=== PATIENT | male | born 1975 | race Caucasian/White ===

== ENCOUNTER 2020-10-04 09:50 | Inpatient (IN) | payer OTHER, SELFPAY ==
[2020-10-04] MEDS ORDERED: HYDROmorphone 0.5 MG/0.5 ML SYRINGE ONE ×2 (10:00→10:50)
[2020-10-04] MEDS ORDERED: Boostrix 0.5 ML (Tdap) VIAL ONE ×2 (10:45→10:49)
[2020-10-04 12:23] LABS: SARS-CoV-2 NAA Rapid Test Not Detected (NotDetected)
[2020-10-04] MEDS ORDERED: Dextrose 50% Abboject 50 ML SYRINGE SLOW IVP PRN (14:44)
[2020-10-04] MEDS ORDERED: hydrALAZINE 20 MG/ML VIAL SLOW IVP PRN (14:44)
[2020-10-04] MEDS ORDERED: Ondansetron ODT 4 MG TAB PO PRN (14:44)
[2020-10-04] MEDS ORDERED: Morphine 2 MG/ML VIAL SLOW IVP PRN (14:44)
[2020-10-04] MEDS ORDERED: Dextrose 5% in Water 1,000 ML IV PRN (14:44)
[2020-10-04] MEDS ORDERED: Ondansetron PF 4 MG/2 ML Vial IVP PRN (14:44)
[2020-10-04] MEDS ORDERED: Cyclobenzaprine 10 MG TAB PO PRN ×2 (14:47→15:03)
[2020-10-04 15:58] LABS: Hemoglobin 14.4 g/dL (14.0-18.0); Mean Corpuscular HGB CONC 32.9 g/dL (32.0-36.0); Mean Corpuscular Hemoglobin 30.6 pg (27.0-31.0); Mean Corpuscular Volume 93.1 fL (78.0-98.0); Mean Platelet Volume 7.7 fL (7.4-10.4); Platelet Count 269 thou/uL (130-400); RBC Distribution Width 11.9 % (11.5-14.5); Red Blood Cell (RBC) Count 4.69 mill/uL (4.70-6.10); White Blood Cell (WBC) Count 9.3 thou/uL (4.8-10.8)
[2020-10-04 16:03] LABS: Band 12 % (5-11); Lymphocytes 27 % (21-51); MDiff Complete? YES; Monocytes 7 % (0-10); Neutrophil 47 % (42-75); Platelet Morphology Comment Appears Adequate; RBC Morphology Normal; Reactive Lymphocytes 7 % (0-10)
[2020-10-04 16:21] VITALS: BMI 31.6
[2020-10-04] MEDS: Lactated Ringer's 1,000 ML IV SCH ×2 (16:30→21:12)
[2020-10-04] MEDS: Gabapentin 300 MG CAP PO SCH ×2 (16:30→21:04)
[2020-10-04] MEDS ORDERED: Morphine 4 MG/ML VIAL SLOW IVP PRN (16:45)
[2020-10-04 17:06] LABS: ALT (SGPT) 35 U/L (8-55); AST (SGOT) 38 U/L (5-34); Alkaline Phosphatase 85 U/L (40-110); Anion Gap 14 mmol/L (10-20); BUN (Urea Nitrogen) 11 mg/dL (8.9-20.6); Bilirubin, Total 0.6 mg/dL (0.2-1.2); CK (CPK) 727 U/L (30-200); Calc. Creatinine Clearance 102 mL/min (70-130); Carbon Dioxide 27 mmol/L (22-29); Chloride 104 mmol/L (98-107); Globulin 2.7 g/dL (2.4-3.5); Glucose 131 mg/dL (70-105); Magnesium 2.3 mg/dL (1.6-2.6); Phosphorus 3.8 mg/dL (2.3-4.7); Potassium 4.5 mmol/L (3.5-5.1); Protein, Total 6.7 g/dL (6.0-8.3); Sodium 140 mmol/L (136-145)
[2020-10-04] MEDS: Acetaminophen 500 MG TAB PO SCH ×2 (18:21→23:03)
[2020-10-04] MEDS: Ketorolac Tromethamine 30 MG/ML VIAL IVP SCH ×2 (18:21→23:04)
[2020-10-04] MEDS: traMADol HCl 50 MG TAB PO SCH ×2 (18:21→23:03)
[2020-10-04] MEDS: Senokot S 8.6-50 MG TAB PO SCH (21:04)
[2020-10-04] MEDS: Famotidine 20 MG TAB PO SCH (21:04)
[2020-10-05] MEDS: Lactated Ringer's 1,000 ML IV SCH (05:40)
[2020-10-05] MEDS: Acetaminophen 500 MG TAB PO SCH ×2 (05:41→15:32)
[2020-10-05] MEDS: Ketorolac Tromethamine 30 MG/ML VIAL IVP SCH ×2 (05:43→15:32)
[2020-10-05] MEDS: traMADol HCl 50 MG TAB PO SCH ×2 (05:43→15:32)
[2020-10-05 05:50] LABS: #Basophils 0.1 thou/uL (0.0-0.2); #Eosinphils 0.3 thou/uL (0.0-0.7); #Lymphocytes 2.9 thou/uL (1.20-3.40); #Monocytes 0.5 thou/uL (0.11-0.59); #Neutrophils 3.2 thou/uL (1.40-6.50); %Basophils 0.9 % (0.0-1.0); %Eosinophils 4.6 % (0.0-10.0); %Lymphocytes 41.4 % (21.0-51.0); %Monocytes 7.3 % (0.0-10.0); %Neutrophils 45.9 % (42.0-75.0); Hemoglobin 13.4 g/dL (14.0-18.0); Mean Corpuscular HGB CONC 33.3 g/dL (32.0-36.0); Mean Corpuscular Hemoglobin 30.9 pg (27.0-31.0); Mean Corpuscular Volume 92.7 fL (78.0-98.0); Mean Platelet Volume 7.9 fL (7.4-10.4); Platelet Count 217 thou/uL (130-400); RBC Distribution Width 11.7 % (11.5-14.5); Red Blood Cell (RBC) Count 4.32 mill/uL (4.70-6.10)
[2020-10-05 06:10] LABS: Anion Gap 12 mmol/L (10-20); BUN (Urea Nitrogen) 10 mg/dL (8.9-20.6); CK (CPK) 341 U/L (30-200); Calc. Creatinine Clearance 126 mL/min (70-130); Calcium 8.7 mg/dL (7.8-10.44); Carbon Dioxide 25 mmol/L (22-29); Chloride 104 mmol/L (98-107); Glucose 145 mg/dL (70-105); Phosphorus 3.6 mg/dL (2.3-4.7); Potassium 3.6 mmol/L (3.5-5.1); Sodium 137 mmol/L (136-145)
[2020-10-05] MEDS: Senokot S 8.6-50 MG TAB PO SCH (08:49)
[2020-10-05] MEDS: Gabapentin 300 MG CAP PO SCH (08:49)
[2020-10-05] MEDS: Famotidine 20 MG TAB PO SCH (08:49)
[2020-10-05] MEDS ORDERED: Polyethylene Glycol 3350 17 GM Packet PO SCH (09:00)
[2020-10-05 15:50] VITALS: BP 122/73; TEMP 98.1
== END 2020-10-05 16:50 | disposition home or self-care (01) | DRG 914 ==
LOC: ERS 09:50 → ERHOLD 11:47 → SURG A 16:11
PROVIDERS: ADMIT Specialist; ATTEND Specialist
DX: S87.81XA Crushing injury of right lower leg, initial encounter (principal); Z20.822 Contact with and (suspected) exposure to COVID-19; F17.210 Nicotine dependence, cigarettes, uncomplicated; S97.82XA Crushing injury of left foot, initial encounter; Z90.89 Acquired absence of other organs; V87.8XXA Person injured in other specified noncollision transport accidents involving motor vehicle (traffic), initial encounter
CPT/HCPCS: 36415; 80048; 80053; 82550; 83735; 84100; 85007; 85025; 85027; 90471; 90715; 96374; 96376; J1170; J1885; J2270; U0002

== ENCOUNTER 2020-10-16 10:08 | Emergency (ER) | payer SELFPAY ==
[2020-10-16] MEDS ORDERED: Ketorolac Tromethamine 30 MG/ML VIAL ONE (11:35)
[2020-10-16] MEDS ORDERED: Acetaminophen 325 MG TAB ONE (11:35)
== END 2020-10-16 12:30 | disposition home or self-care (01) ==
LOC: ERS 10:08
DX: S80.11XA Contusion of right lower leg, initial encounter (principal); R20.2 Paresthesia of skin; I10 Essential (primary) hypertension; F17.210 Nicotine dependence, cigarettes, uncomplicated; W22.8XXA Striking against or struck by other objects, initial encounter; Y99.0 Civilian activity done for income or pay
CPT/HCPCS: 96372; J1885

== ENCOUNTER 2021-03-08 18:26 | Inpatient (IN) | payer SELFPAY ==
[2021-03-08 19:23] LABS: #Eosinphils 0.2 thou/uL (0.0-0.7); #Lymphocytes 1.8 thou/uL (1.20-3.40); #Monocytes 0.4 thou/uL (0.11-0.59); #Neutrophils 5.2 thou/uL (1.40-6.50); %Basophils 0.4 % (0.0-1.0); %Eosinophils 2.3 % (0.0-10.0); %Lymphocytes 23.8 % (21.0-51.0); %Monocytes 5.8 % (0.0-10.0); %Neutrophils 67.8 % (42.0-75.0); Hemoglobin 14.5 g/dL (14.0-18.0); Mean Corpuscular HGB CONC 34.2 g/dL (32.0-36.0); Mean Corpuscular Hemoglobin 31.4 pg (27.0-31.0); Mean Corpuscular Volume 91.7 fL (78.0-98.0); Mean Platelet Volume 7.7 fL (7.4-10.4); Platelet Count 215 thou/uL (130-400); RBC Distribution Width 11.9 % (11.5-14.5); Red Blood Cell (RBC) Count 4.61 mill/uL (4.70-6.10); White Blood Cell (WBC) Count 7.7 thou/uL (4.8-10.8)
[2021-03-08 19:55] LABS: ALT (SGPT) 24 U/L (8-55); AST (SGOT) 19 U/L (5-34); Albumin 3.9 g/dL (3.5-5.0); Alkaline Phosphatase 83 U/L (40-110); Anion Gap 12 mmol/L (10-20); BUN (Urea Nitrogen) 7 mg/dL (8.9-20.6); Bilirubin, Total 0.4 mg/dL (0.2-1.2); Calc. Creatinine Clearance 0 mL/min (70-130); Calcium 8.9 mg/dL (7.8-10.44); Carbon Dioxide 31 mmol/L (22-29); Chloride 99 mmol/L (98-107); Globulin 2.6 g/dL (2.4-3.5); Glucose 197 mg/dL (70-105); Lipase 25 U/L (8-78); Magnesium 1.8 mg/dL (1.6-2.6); Potassium 3.9 mmol/L (3.5-5.1); Protein, Total 6.5 g/dL (6.0-8.3); Sodium 138 mmol/L (136-145)
[2021-03-08 22:09] LABS: Bilirubin Negative (Negative); Blood, Urine Negative (Negative); Clarity Clear (Clear); Glucose, Urine (Dipstick) 70 mg/dL (Negative); Ketone, Urine Negative (Negative); Leukocyte Negative Leu/uL (Negative); Nitrite Negative (Negative); Protein, Urine (Dipstick) 10 mg/dL (Neg-Trace); Urobilinogen Normal mg/dL (Less than 2)
[2021-03-08 22:12] LABS: Specific Gravity, Urine Greater than 1.060 (1.002-1.036)
[2021-03-08] MEDS ORDERED: Piperacillin/Tazobactam 4.5 GM VIAL ONE (22:32)
[2021-03-09] MEDS: Sodium Chloride 0.9% 1,000 ML IV SCH ×3 (00:31→21:35)
[2021-03-09 00:33] VITALS: BMI 33.1
[2021-03-09 04:19] LABS: SARS-CoV-2 NAA Rapid Test Not Detected (NotDetected)
[2021-03-09] MEDS ORDERED: cefOXitin Sodium/Dextrose,Iso 2 GM in Premix Bag 1 BAG IVPB SCH (07:30)
[2021-03-09] MEDS ORDERED: cefOXitin 2 GM in Sodium Chloride 0.9% 100 ML IVPB SCH (07:30)
[2021-03-09] MEDS ORDERED: cefOXitin Sodium/Dextrose 2 GM/50 ML BAG ONE (10:44)
[2021-03-09] MEDS ORDERED: EPINEPHrine 1 MG/ML AMP ONE (11:25)
[2021-03-09] MEDS ORDERED: Bupivacaine 0.25% HCL 30 ML VIAL ONE (11:25)
[2021-03-09] MEDS ORDERED: Midazolam HCl 2 mg/2 ml Vial ONE (11:44)
[2021-03-09] MEDS ORDERED: Fentanyl 100 MCG/2 ML VIAL ONE ×2 (11:44→13:40)
[2021-03-09] MEDS ORDERED: Succinylcholine 200 MG/10 ml SYRINGE FS ONE (11:53)
[2021-03-09] MEDS ORDERED: Lidocaine 1% PF 5 ML VIAL ONE (11:53)
[2021-03-09] MEDS ORDERED: PHENYLEPHRINE-NS 100 MCG/ML 10 ML SYRINGE ONE (11:53)
[2021-03-09] MEDS ORDERED: Glycopyrrolate 0.2 MG/ML 5 ML SYRINGE ONE (11:53)
[2021-03-09] MEDS ORDERED: Dexamethasone 20 MG/5 ML VIAL ONE (11:53)
[2021-03-09] MEDS ORDERED: Rocuronium Bromide 10 MG/ML (10ML VIAL) ONE (11:53)
[2021-03-09] MEDS ORDERED: Ondansetron PF 4 MG/2 ML Vial ONE (11:53)
[2021-03-09] MEDS ORDERED: Ketorolac Tromethamine 30 MG/ML VIAL ONE (11:53)
[2021-03-09] MEDS ORDERED: PROPOFOL 200 MG/20 ML VIAL ONE (11:53)
[2021-03-09] MEDS ORDERED: Ondansetron PF 4 MG/2 ML Vial IVP PRN (13:10)
[2021-03-09] MEDS ORDERED: Promethazine HCl 25 MG/ML VIAL IM PRN (13:10)
[2021-03-09] MEDS ORDERED: Morphine 2 MG/ML VIAL SLOW IVP PRN (13:10)
[2021-03-09] MEDS ORDERED: hydrALAZINE 20 MG/ML VIAL SLOW IVP PRN (13:10)
[2021-03-09] MEDS ORDERED: Dextrose 50% Abboject 50 ML SYRINGE SLOW IVP PRN (13:10)
[2021-03-09] MEDS ORDERED: Mag-Al 1200 mg/1200 mg/30 ML UDCUP PO PRN (13:10)
[2021-03-09] MEDS ORDERED: Calcium Carbonate 500 MG ChewTAB PO PRN (13:10)
[2021-03-09] MEDS ORDERED: Dextrose 5% in Water 1,000 ML IV PRN (13:10)
[2021-03-09] MEDS ORDERED: Morphine 4 MG/ML VIAL SLOW IVP PRN (13:10)
[2021-03-09] MEDS ORDERED: Non-Formulary Medication 1 EACH PO PRN (14:20)
[2021-03-09] MEDS ORDERED: Ondansetron HCl/PF 4 MG/2 ML Vial IVP PRN (14:30)
[2021-03-09] MEDS ORDERED: Morphine Sulfate 2 MG/ML SYRINGE SLOW IVP PRN (14:30)
[2021-03-09] MEDS ORDERED: PACU-Morphine 4MG/ML VIAL SLOW IVP PRN (14:30)
[2021-03-09] MEDS ORDERED: Promethazine HCl 25 MG/ML VIAL IM/IV PRN (14:30)
[2021-03-09] MEDS: Piperacillin/Tazobactam 3.375 GM in Sodium Chloride 0.9% 100 ML IVPB SCH ×2 (14:45→22:18)
[2021-03-09] MEDS: Ketorolac Tromethamine 30 MG/ML VIAL IVP SCH (18:07)
[2021-03-09] MEDS: Famotidine 20 MG TAB PO SCH (20:26)
[2021-03-09] MEDS: Famotidine/PF 20 mg/2ml Vial SLOW IVP SCH (20:44)
[2021-03-09] MEDS: HYDROcodone/Acetaminophen 10/325 mg Tablet PO PRN (22:19)
[2021-03-10] MEDS: Ketorolac Tromethamine 30 MG/ML VIAL IVP SCH ×5 (00:46→23:57)
[2021-03-10] MEDS: HYDROcodone/Acetaminophen 10/325 mg Tablet PO PRN ×3 (04:32→18:15)
[2021-03-10] MEDS: Piperacillin/Tazobactam 3.375 GM in Sodium Chloride 0.9% 100 ML IVPB SCH ×3 (05:57→21:19)
[2021-03-10] MEDS: Sodium Chloride 0.9% 1,000 ML IV SCH ×3 (06:04→14:35)
[2021-03-10 06:39] LABS: #Lymphocytes 1.5 thou/uL (1.20-3.40); #Monocytes 0.9 thou/uL (0.11-0.59); #Neutrophils 12.6 thou/uL (1.40-6.50); %Basophils 0.1 % (0.0-1.0); %Eosinophils 0.1 % (0.0-10.0); %Lymphocytes 9.7 % (21.0-51.0); %Monocytes 5.9 % (0.0-10.0); %Neutrophils 84.3 % (42.0-75.0); Hemoglobin 12.9 g/dL (14.0-18.0); Mean Corpuscular HGB CONC 33.5 g/dL (32.0-36.0); Mean Corpuscular Hemoglobin 30.8 pg (27.0-31.0); Mean Platelet Volume 7.8 fL (7.4-10.4); Platelet Count 254 thou/uL (130-400); RBC Distribution Width 11.9 % (11.5-14.5)
[2021-03-10 07:01] LABS: ALT (SGPT) 25 U/L (8-55); AST (SGOT) 35 U/L (5-34); Albumin 3.6 g/dL (3.5-5.0); Alkaline Phosphatase 77 U/L (40-110); Anion Gap 10 mmol/L (10-20); BUN (Urea Nitrogen) 10 mg/dL (8.9-20.6); Bilirubin, Total 0.4 mg/dL (0.2-1.2); Calc. Creatinine Clearance 108 mL/min (70-130); Carbon Dioxide 31 mmol/L (22-29); Chloride 100 mmol/L (98-107); Globulin 2.4 g/dL (2.4-3.5); Glucose 221 mg/dL (70-105); Lipase 14 U/L (8-78); Potassium 4.6 mmol/L (3.5-5.1); Sodium 136 mmol/L (136-145)
[2021-03-10] MEDS: Famotidine/PF 20 mg/2ml Vial SLOW IVP SCH ×2 (08:53→20:49)
[2021-03-10] MEDS: Famotidine 20 MG TAB PO SCH ×2 (08:53→20:49)
[2021-03-10] MEDS: Enoxaparin Sodium 40 MG/0.4 ML SYRINGE SC SCH (09:15)
[2021-03-10] MEDS ORDERED: Sodium Chloride 0.9% 500 ML IV SCH (16:45)
[2021-03-11] MEDS: Sodium Chloride 0.9% 1,000 ML IV SCH ×2 (00:02→01:35)
[2021-03-11] MEDS: Ketorolac Tromethamine 30 MG/ML VIAL IVP SCH (05:55)
[2021-03-11] MEDS: Piperacillin/Tazobactam 3.375 GM in Sodium Chloride 0.9% 100 ML IVPB SCH (06:01)
[2021-03-11 08:25] VITALS: BP 130/84; TEMP 97.7
[2021-03-11] MEDS: Famotidine 20 MG TAB PO SCH (09:09)
[2021-03-11] MEDS: HYDROcodone/Acetaminophen 10/325 mg Tablet PO PRN (09:10)
[2021-03-11] MEDS: Famotidine/PF 20 mg/2ml Vial SLOW IVP SCH (09:12)
[2021-03-11] MEDS: Enoxaparin Sodium 40 MG/0.4 ML SYRINGE SC SCH (09:16)
== END 2021-03-11 10:37 | disposition home or self-care (01) | DRG 419 ==
LOC: ERS 18:26 → SJJU 22:48
PROVIDERS: ADMIT Surgery; ATTEND Surgery
PROC: 0FT44ZZ Resection of Gallbladder, Percutaneous Endoscopic Approach (ICD-10-PCS; principal; 2021-03-09)
DX: K80.00 Calculus of gallbladder with acute cholecystitis without obstruction (principal); I10 Essential (primary) hypertension; F17.210 Nicotine dependence, cigarettes, uncomplicated; Z20.822 Contact with and (suspected) exposure to COVID-19; Z90.89 Acquired absence of other organs
CPT/HCPCS: 36415; 74177; 76705; 80053; 81003; 83690; 83735; 83880; 84484; 85025; 87040; 87070; 87205; 88304; 93005; 96365; J0171; J0694; J1100; J1650; J1885; J2250; J2270; J2405; J2543; J2704; J3010; J3490; J7030; J7050; S0020; U0002

== ENCOUNTER 2024-04-03 11:03 | Inpatient (IN) | payer OTHER, SELFPAY ==
[~2024-04-03 11:03] MED LIST: Iopamidol-370 76% 500 ML MDV (1 ML CHARGE) ONE
[2024-04-03 12:08] LABS: #Basophils 0.05 10x3/uL (0.0-0.2); %Basophils 0.5 % (0.0-1.0); %Eosinophils 2.4 % (0.0-10.0); %Lymphocytes 28.1 % (21.0-51.0); %Monocytes 8.9 % (0.0-10.0); %Neutrophils 59.8 % (42.0-75.0); Hematocrit 46.3 % (42.0-52.0); Hemoglobin 15.4 g/dL (14.0-18.0); Mean Corpuscular HGB CONC 33.3 g/dL (32.0-36.0); Mean Corpuscular Hemoglobin 30.7 pg (27.0-31.0); Mean Corpuscular Volume 92.2 fL (78.0-98.0); Mean Platelet Volume 10.5 fL (7.4-10.4); Platelet Count 243 10x3/uL (130-400); RBC Distribution Width 12.4 % (11.5-14.5); Red Blood Cell (RBC) Count 5.02 mill/uL (4.70-6.10)
[2024-04-03 12:24] LABS: Troponin I Less than 0.010 ng/mL (< 0.028)
[2024-04-03 12:25] LABS: INR-International Normal Ratio 1.1; PTT 31.5 sec (22.9-36.1)
[2024-04-03 12:27] LABS: ALT (SGPT) 18 U/L (8-55); AST (SGOT) 22 U/L (5-34); Albumin 3.7 g/dL (3.5-5.0); Alkaline Phosphatase 93 U/L (40-110); Anion Gap 13 mmol/L (10-20); BUN (Urea Nitrogen) 12 mg/dL (8.9-20.6); Calc. Creatinine Clearance 0 mL/min (70-130); Calcium 8.9 mg/dL (7.8-10.44); Carbon Dioxide 24 mmol/L (22-29); Chloride 105 mmol/L (98-107); Estimated GFR 67; Globulin 2.7 g/dL (2.4-3.5); Glucose 190 mg/dL (70-105); Potassium 3.9 mmol/L (3.5-5.1); Protein, Total 6.4 g/dL (6.0-8.3); Sodium 138 mmol/L (136-145)
[2024-04-03] MEDS ORDERED: Aspirin Chewable 81 MG TAB ONE (13:58)
[2024-04-03] MEDS ORDERED: Acetaminophen 325 MG TAB PO PRN (16:25)
[2024-04-03] MEDS ORDERED: hydrALAZINE 20 MG/ML VIAL SLOW IVP PRN (16:26)
[2024-04-03] MEDS ORDERED: Dextrose 5% in Water 1,000 ML IV PRN (17:22)
[2024-04-03] MEDS ORDERED: Glucagon 1 MG/ML KIT IM PRN (17:22)
[2024-04-03] MEDS ORDERED: Dextrose 50% Abboject 50 ML SYRINGE SLOW IVP PRN (17:22)
[2024-04-03 18:34] LABS: Hemoglobin A1c 11.7 % (4.0-6.0)
[2024-04-03 20:23] VITALS: BMI 27.7
[2024-04-03] MEDS: Atorvastatin Calcium 40 MG TAB PO SCH (20:37)
[2024-04-04 09:02] LABS: PTT 30.9 sec (22.9-36.1); Prothrombin Time 13.7 sec (12.0-14.7)
[2024-04-04 09:08] LABS: D-Dimer Test Less than 0.27 mcg/mL (0.27-0.43)
[2024-04-04] MEDS: Enoxaparin 40 MG (0.4 mL) SYRINGE SC SCH (10:25)
[2024-04-04] MEDS: Aspirin 81 mg Enteric Coated Tablet PO SCH (10:26)
[2024-04-04 12:24] LABS: Cardiolipin IgA Ab 2.7 APL-U/mL (<14 Negative); Cardiolipin IgG Ab 0.7 GPL-U/mL (<10 Negative); Cardiolipin IgM Ab 1.8 MPL-U/mL (<10 Negative); EliA APS New Method **** NEW METHOD ****
[2024-04-04 15:15] VITALS: BMI 27.7
[2024-04-04] MEDS: Insulin Lispro 100 UNIT/ML 10 ML VIAL SC PRN (17:27)
[2024-04-04] MEDS: metFORMIN 850 MG TAB PO SCH (17:27)
[2024-04-05 05:24] LABS: #Basophils 0.06 10x3/uL (0.0-0.2); %Basophils 0.6 % (0.0-1.0); %Eosinophils 2.2 % (0.0-10.0); %Lymphocytes 39.4 % (21.0-51.0); %Monocytes 6.4 % (0.0-10.0); %Neutrophils 51.2 % (42.0-75.0); Hematocrit 47.7 % (42.0-52.0); Hemoglobin 16.1 g/dL (14.0-18.0); Mean Corpuscular HGB CONC 33.8 g/dL (32.0-36.0); Mean Corpuscular Hemoglobin 30.5 pg (27.0-31.0); Mean Corpuscular Volume 90.3 fL (78.0-98.0); Mean Platelet Volume 10.1 fL (7.4-10.4); Platelet Count 241 10x3/uL (130-400); RBC Distribution Width 12.1 % (11.5-14.5); Red Blood Cell (RBC) Count 5.28 mill/uL (4.70-6.10)
[2024-04-05 05:38] LABS: Anion Gap 15 mmol/L (10-20); BUN (Urea Nitrogen) 13 mg/dL (8.9-20.6); Calc. Creatinine Clearance 102 mL/min (70-130); Calcium 8.8 mg/dL (7.8-10.44); Carbon Dioxide 23 mmol/L (22-29); Chloride 100 mmol/L (98-107); Estimated GFR 76; Glucose 221 mg/dL (70-105); Potassium 3.5 mmol/L (3.5-5.1); Sodium 134 mmol/L (136-145)
[2024-04-05] MEDS: metFORMIN 500 MG TAB PO SCH (17:40)
[2024-04-06] MEDS: glipiZIDE XL 2.5 mg ER.TAB PO SCH (14:38)
[2024-04-06] MEDS: Gabapentin 300 MG CAP PO SCH ×2 (14:38→14:50)
[2024-04-07] MEDS: glipiZIDE XL 2.5 mg ER.TAB PO SCH (08:24)
[2024-04-08] MEDS: Carvedilol 3.125 MG TAB PO SCH (17:40)
[2024-04-08] MEDS: Lisinopril 5 MG TAB PO SCH (21:49)
[2024-04-09] MEDS ORDERED: Regadenoson 0.4 MG/5 ML SYRINGE ONE (11:22)
[2024-04-10 12:05] VITALS: BP 114/74; TEMP 97.7
[2024-04-14 12:37] LABS: Activated Protein C Resistance 2.5 ratio (.)
== END 2024-04-10 12:35 | disposition home or self-care (01) | DRG 918 ==
LOC: ERS 11:03 → ERHOLD 14:51 → OBS 20:13 → OBSVTOIN 04-04 16:51
PROVIDERS: ADMIT Internal Medicine; ATTEND Student in an Organized Health Care Education/Training Program
DX: T43.652A Poisoning by methamphetamines intentional self-harm, initial encounter (principal); Z59.00 Homelessness unspecified; I42.8 Other cardiomyopathies; G56.32 Lesion of radial nerve, left upper limb; I10 Essential (primary) hypertension; F17.210 Nicotine dependence, cigarettes, uncomplicated; E78.1 Pure hyperglyceridemia; F15.10 Other stimulant abuse, uncomplicated; E11.65 Type 2 diabetes mellitus with hyperglycemia; X58.XXXA Exposure to other specified factors, initial encounter; Z90.49 Acquired absence of other specified parts of digestive tract
CPT/HCPCS: 0042T; 36415; 36416; 70450; 70496; 70498; 70551; 71045; 72141; 78452; 80048; 80053; 80061; 83036; 83090; 83735; 84484; 85025; 85300; 85303; 85306; 85307; 85598; 85610; 85730; 86147; 93005; 93017; 93306; 94760; 96372; A9500; G0378; J1650; J1815; J2785; Q9967